=== PATIENT | male | born 1970 | race Caucasian/White ===

== ENCOUNTER 2017-01-09 01:39 | Emergency (ER) | payer OTHER ==
[2017-01-09 02:25] VITALS: TEMP 98.1; BMI 30.1
[2017-01-09] MEDS ORDERED: ONDANSETRON 4 MG/2 ML VIAL IVPUSH ONE (03:52)
[2017-01-09] MEDS ORDERED: SODIUM CHLORIDE 1,000 ML IV STA (03:52)
[2017-01-09] MEDS ORDERED: morphine CARPU-JECT 4 MG/1 ML DISP.SYRIN IVPUSH ONE (03:52)
[2017-01-09 04:15] LABS: BASOPHIL 0.7 % (0-2.0); EOSINOPHIL 9.8 % (0-4.5); MCH 30.6 pg (25.7-33.7); MCHC 34.7 g/dl (32.0-35.9); NEUTROPHILS 60.4 % (42.8-82.8); PLATELET COUNT 218 K/MM3 (134-434); WHITE BLOOD COUNT 9.9 K/mm3 (4.0-10.0)
[2017-01-09] MEDS ORDERED: ONDANSETRON 4 MG/2 ML VIAL ONE (04:17)
[2017-01-09] MEDS ORDERED: morphine CARPU-JECT 4 MG/1 ML DISP.SYRIN ONE (04:17)
[2017-01-09 04:50] LABS: ALBUMIN 3.9 g/dl (3.4-5.0); ALK PHOS 152 U/L (45-117); ANION GAP 7 (8-16); BILIRUBIN,TOTAL 0.4 mg/dL (0.2-1.0); CALCIUM 8.2 mg/dL (8.5-10.1); CO2 29 mmol/L (21-32); COCKROFT - GAULT 109.47; CREATININE 0.9 mg/dL (0.7-1.3); GLUCOSE,RANDOM 132 mg/dL (74-106)
[2017-01-09 04:52] LABS: SGOT/AST 96 U/L (15-37); SGPT/ALT 200 U/L (12-78); TOT PROT 7.4 g/dl (6.4-8.2)
--- NOTE | 2017-01-09 07:21 | PDOC ---
*Physical Exam - Vital Signs Last Vital Signs Temp Pulse Resp BP Pulse Ox 98.1 F 74 14 148/79 99 01/09/17 02:19 01/09/17 02:19 01/09/17 02:19 01/09/17 02:19 01/09/17 02:19 ED Treatment Course - LABORATORY CBC & Chemistry Diagram: 01/09/17 04:00 01/09/17 04:00 - ADDITIONAL ORDERS Additional order review: Laboratory Results 01/09/17 04:00 Sodium 138 Potassium 4.1 Chloride 102 Carbon Dioxide 29 Anion Gap 7 L BUN 14 Creatinine 0.9 Creat Clearance w eGFR > 60 Random Glucose 132 H Calcium 8.2 L Total Bilirubin 0.4 AST 96 H ALT 200 H Alkaline Phosphatase 152 H Total Protein 7.4 Albumin 3.9 01/09/17 04:00 RBC 5.17 MCV 88.0 MCHC 34.7 RDW 13.0 MPV 8.0 Neutrophils % 60.4 Lymphocytes % 22.1 Monocytes % 7.0 Eosinophils % 9.8 H Basophils % 0.7 - Medications Given in the ED: ED Medications Discontinued Medications Generic Name Dose Route Start Last Admin Trade Name Freq PRN Reason Stop Dose Admin Sodium Chloride 1,000 mls @ 1,000 mls/hr 01/09/17 03:52 01/09/17 04:22 Normal Saline - IV 01/09/17 04:51 1,000 mls/hr ASDIR STA Administration Morphine Sulfate 4 mg 01/09/17 03:52 01/09/17 04:22 Morphine Injection - IVPUSH 01/09/17 03:53 4 mg ONCE ONE Administration Ondansetron HCl 4 mg 01/09/17 03:52 01/09/17 04:22 Zofran Injection IVPUSH 01/09/17 03:53 4 mg ONCE ONE Administration Medical Decision Making - Medical Decision Making 01/09/17 07:20 Patient received in sign out from PAM De La [facility]. Patient complaining of right lower quadrant pain and pending abdominal CT. Laboratory Tests 01/09/17 01/09/17 04:00 04:00 WBC 9.9 Hgb 15.8 Hct 45.5 Eosinophils % 9.8 H Sodium 138 Anion Gap 7 L Random Glucose 132 H Calcium 8.2 L AST 96 H Alkaline Phosphatase 152 H 01/09/17 07:21 Selected Entries 01/09/17 02:19 Temperature 98.1 F Pulse Rate 74 Blood Pressure 148/79 Will repeat vitals. I reviewed the CT which showed thickened right anterior bladder wall was saturating between the bladder and hernia sac questioning a recent bladder herniation or status post reduction secondary to bladder wall edema and inflammation. Call was placed with urology. 01/09/17 09:[address] Reese who states patient would benefit from cystoscopy and to follow-up in the office. Patient upon discharge will be given referral contact information. *DC/Admit/Observation/Transfer Diagnosis at time of Disposition: Abdominal pain Qualifiers: Abdominal location: right lower quadrant Qualified Code(s): R10.31 - Right lower quadrant pain - Discharge Dispostion Disposition: HOME Condition at time of disposition: Good - Referrals Referrals: Marcus Reese MD., MD [Staff Physician] - - Patient Instructions Printed Discharge Instructions: DI for Abdominal Pain-Adult Additional Instructions: So although your lab work was not suggestive of acute findings are CAT scan did show a questionable thickened fat. I have spoken to the urologist Dr. Reese and he is requesting your presence in his office for schedule cystoscopy.
--- NOTE | 2017-01-09 07:29 | PDOC ---
History of Present Illness - General Chief Complaint: Pain Stated Complaint: PAIN Time Seen by Provider: 01/09/17 02:36 History Source: Patient Exam Limitations: No Limitations - History of Present Illness Travel History: No Initial Comments: 01/09/17 03:29 Past History - Past Medical History Allergies/Adverse Reactions: Allergies Allergy/AdvReac Type Severity Reaction Status Date / Time No Known Allergies Allergy Verified 01/09/17 02:19 Home Medications: Ambulatory Orders NK [No Known Home Medication] 01/09/17 - Psycho/Social/Smoking Cessation Hx Suicidal Ideation: No Smoking History: Never smoked Have you smoked in the past 12 months: No Information on smoking cessation initiated: No Hx Alcohol Use: No Drug/Substance Use Hx: No *Physical Exam - Vital Signs Last Vital Signs Temp Pulse Resp BP Pulse Ox 98.1 F 74 14 148/79 99 01/09/17 02:19 01/09/17 02:19 01/09/17 02:19 01/09/17 02:19 01/09/17 02:19 ED Treatment Course - LABORATORY CBC & Chemistry Diagram: 01/09/17 04:00 01/09/17 04:00 - ADDITIONAL ORDERS Additional order review: Laboratory Results 01/09/17 04:00 Sodium 138 Potassium 4.1 Chloride 102 Carbon Dioxide 29 Anion Gap 7 L BUN 14 Creatinine 0.9 Creat Clearance w eGFR > 60 Random Glucose 132 H Calcium 8.2 L Total Bilirubin 0.4 AST 96 H ALT 200 H Alkaline Phosphatase 152 H Total Protein 7.4 Albumin 3.9 01/09/17 04:00 RBC 5.17 MCV 88.0 MCHC 34.7 RDW 13.0 MPV 8.0 Neutrophils % 60.4 Lymphocytes % 22.1 Monocytes % 7.0 Eosinophils % 9.8 H Basophils % 0.7 - RADIOLOGY Radiology Studies Ordered: Category Date Time Status ABDOMEN & PELVIS CT WITH CONTR [CT] Stat CT Scan 01/09/17 03:52 Taken - Medications Given in the ED: ED Medications Discontinued Medications Generic Name Dose Route Start Last Admin Trade Name Freq PRN Reason Stop Dose Admin Sodium Chloride 1,000 mls @ 1,000 mls/hr 01/09/17 03:52 01/09/17 04:22 Normal Saline - IV 01/09/17 04:51 1,000 mls/hr ASDIR STA Administration Morphine Sulfate 4 mg 01/09/17 03:52 01/09/17 04:22 Morphine Injection - IVPUSH 01/09/17 03:53 4 mg ONCE ONE Administration Ondansetron HCl 4 mg 01/09/17 03:52 01/09/17 04:22 Zofran Injection IVPUSH 01/09/17 03:53 4 mg ONCE ONE Administration
[2017-01-09 07:39] VITALS: BP 143/80; PULSE 78
[2017-01-09 08:30] LABS: URINE APPEARANCE CLEAR; URINE BILIRUBIN NEGATIVE (NEGATIVE); URINE BLOOD NEGATIVE (NEGATIVE); URINE COLOR STRAW; URINE GLUCOSE (UA) NEGATIVE (NEGATIVE); URINE KETONE NEGATIVE (NEGATIVE); URINE LEUK ESTERASE NEGATIVE (NEGATIVE); URINE NITRITE NEGATIVE (NEGATIVE); URINE PROTEIN NEGATIVE (NEGATIVE); URINE UROBILINOGEN NEGATIVE E.U./dl (0.2-1.0)
== END 2017-01-09 09:55 | disposition home or self-care (01) ==
LOC: JER 01:39
PROC: 3E033NZ Introduction of Analgesics, Hypnotics, Sedatives into Peripheral Vein, Percutaneous Approach (ICD-10-PCS; principal; 2017-01-09)
PROC: 3E033GC Introduction of Other Therapeutic Substance into Peripheral Vein, Percutaneous Approach (ICD-10-PCS; 2017-01-09)
DX: R10.31 Right lower quadrant pain (principal); N32.89 Other specified disorders of bladder
CPT/HCPCS: 36415; 74177-TC; 80053; 81003; 85025; 99284-25